=== PATIENT | male | born 1980 | race Caucasian/White ===

== ENCOUNTER → 2017-02-12 | Outpatient (CLI) | payer SELFPAY ==
--- NOTE | 2017-02-12 08:21 | PCM.PRNOTE ---
- Free Text/Narrative Note: Lexiscan Indication atrial fibrillation with antiarrhythmic initiation Patient was supervised today during infusion portion of the stress test. The patient received Regadenoson 0.4 mg IV and nuclear agent using standard protocol. Sestamibi Tm99 25 Mci was gievn afterwards Baseline blood pressure is 118/91 with a heart rate 86 EKG atrial fibrillation without ST abnormalities, with occasional PVCs Vital signs at injection: Peak blood pressure 110/91 with a heart rate of 72 Vital signs at 4 minutes post injection: Peak blood pressure 120/93 with a heart rate of 77 EKG atrial fibrillation without further ST changes Patient complains of head de [place]ira, breathless spontaneously resolved Adverse effects from Luisa scan none Test done due to end of protocol Impression 1. electrocardiographically nondiagnostic for ischemia due to chemical protocol 2. nuclear imaging pending
--- NOTE | 2017-02-12 11:31 | NM ---
EXAMINATION: Nuclear medicine myocardial perfusion study with exercise stress test. HISTORY: Persistent atrial fibrillation. PROCEDURE: Patient exercised according to Randy protocol for 7 minutes and 16 seconds and achieved maximal hear t rate of 120 beats per minute. Adequate exercise. Following intravenous administration of 26.7 mCi of technetium 99m sestamibi, stress SPECT images i ncluding gating imaging was performed. FINDINGS: Stress myocardial SPECT images demonstrates mildly heterogeneous uptake throughout the left ventricu lar myocardium. This is most focused at the anterior wall with mildly decreased perfusion throughout extending to the apex. There is generalized hypokinesis. The chamber size is mildly prominent at 240 mL. The left ventricul ar ejection fraction is 39 %. The left ventricular chamber size is normal. IMPRESSION: 1. Heterogeneous uptake throughout the left ventricular myocardium, correlate with rest imaging. 2. Generalized hypokinesis with an ejection fraction of 39 %.
== END ==
LOC: MW.NM 07:29
PROVIDERS: ATTEND Internal Medicine
DX: I48.1 Persistent atrial fibrillation (principal)
CPT/HCPCS: 78451; 93017; A9500; J2785

== ENCOUNTER → 2017-02-18 | Outpatient (CLI) | payer SELFPAY ==
--- NOTE | 2017-02-19 08:32 | NM ---
EXAMINATION: Breast myocardial perfusion study HISTORY: Atrial fibrillation COMPARISON: Stressed images dated 02/12/2017 TECHNIQUE: Gated images obtained at rest following the administration of 27.2 mCi of technetium 99 M labeled sestamibi. FINDINGS/IMPRESSION: Breast images also demonstrate heterogeneous uptake within the left ventricular myocardium. However the previously demonstrated decreased uptake along the anterior wall is more pr onounced on the stress images suggesting a degree of myocardial ischemia. Ejection fraction at rest is 42% and the chamber size and wall motion appears grossly unchanged with mild global hypokinesis.
== END | disposition home or self-care (01) ==
LOC: MW.NM 08:12
PROVIDERS: ATTEND Internal Medicine
DX: I48.1 Persistent atrial fibrillation (principal)
CPT/HCPCS: 78451; A9500